=== PATIENT | female | born 1980 ===

== ENCOUNTER 2021-06-14 10:30 | Outpatient (RCR) | payer MEDICARE, MEDICAID, SELFPAY ==
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
--- NOTE | 2021-05-15 15:34 | PC.NURSE ---
case opened in treatment team
[2021-05-16 12:40] VITALS: BMI 20.9
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
--- NOTE | 2021-05-17 12:58 | P.PNPSP_ITS ---
Subjective Subjective Date of Service: 05/17/21 Reason For Visit: PTSD, Depression, Anxiety, Paranoia Interim History: The patient reported anxiety and depression due to her recent loss, and she feels that she is not functioning. She is scared to try a new medication. Mental Status Exam Mental Status Exam Patient Appearance: Well Grooomed Patient Orientation: Person Level of Consciousness: Awake Patient Behavior: Appropriate Mood Description: Depressed Affect Description: Calm Patient Cognition Impaired: No Ability to Follow Directions: Good Speech Pattern: Clear Memory Description: Intact Hallucinations: None Delusions: Not Present Thought Process: Goal Oriented Thought Content: positive for Circumstantial Depressive Symptoms: Increased Anxiety Judgement: Fair Diagnostics Vital Signs (24Hr): Body Mass Index 20.9 Assessment & Plan Assessment & Plan (1) Post-traumatic stress disorder, unspecified: Status: Acute Code(s): F43.10 - Post-traumatic stress disorder, unspecified Assessment and Plan: Adult female with MDD and PTSD, referred to [facility] for exacerbation of depression after the loss of her dog. Plan: 1. We considered Lexapro for depression. 2. Since she has been sleeping poorly and she is paranoid., she agreed to try Doxepin 10 mg po qhs (2) Depression, major, severe recurrence: Status: Acute Code(s): F33.2 - Major depressive disorder, recurrent severe without psychotic features Certification I certify that partial hospital treatment is medically necessary due to the symptoms and problems resulting from the patient's mental illness and the failure to treat the patient at the partial hospital level of care would likely result in the patient requiring inpatient psychiatric care which could not be prevented at a less intensive level of care. Greater than 50% of the session was spent on counseling and/or coordination of care Discharge Plan Discharge Attending provider: Toño Mcmahon Primary Care Provider: Mariela Qureshi Medications: No Action oxcarbazepine 300 mg tablet 1 tab PO BID RF: 0 clonazepam 1 mg tablet 1 mg PO BID RF: 0 alprazolam [Xanax] 0.25 mg tablet 0.25 mg PO BEDTIME RF: 0 famotidine 20 mg tablet 20 mg PO DAILY RF: 0 hydroxyzine HCl 25 mg tablet 25 mg PO BEDTIME PRN (Reason: Insomnia) RF: 0 Referrals: Mariela Qureshi, IVAN [Primary Care Provider] - 1 Week Telehealth Telehealth Location of provider rendering services: practice address Location of patient: address on file Patient Identification confirmed using: Name, : No Telehealth method: video Patient verbally consented to treatment: Yes Patient verbally consented to billing insurance company: Yes Patient informed of any privacy concerns related to visit: No Time spent with patient (mins): 15
--- NOTE | 2021-05-18 15:47 | P.PNPSP_ITS ---
Subjective Subjective Date of Service: 05/18/21 Reason For Visit: PTSD, Depression, Anxiety, Paranoia Subjective Notes: Castillo Warning Guardianship: No Medical Problems Affecting Mental Status: No Interim History: Cintia reports that she met with psychiatrist in this program yesterday, and that she is concerned about the medication he prescribed. Medication education, including efficacy, side effects provided. Discussed other medications such as Lexapro. Also discussed TMS, which patient had expressed interest in. She is requesting referral to [facility] TMS program. Patient reports that she does not wish to start the doxepin today, although this was encouraged by this typewriter assembly and parts inspector. She would like to ?think about it ?, and may want to start Lexapro tomorrow instead. Patient is currently taking other medications at home, does not express any type of concerns regarding them. Continues with dysphoric mood. Denies SI, states that she feels safe at this time. Medication Compliance: Yes (With medications already prescribed by outpatient provider.) Side effects from medications: No Attending Groups: Yes Review of Systems Review of Systems Yes all other systems are reviewed and are negative Mental Status Exam Mental Status Exam Patient Appearance: Well Grooomed and Fatigued Patient Orientation: Person, Place, Time and Situation Level of Consciousness: Awake and Appropriate Patient Behavior: Cooperative, Anxious, Fearful, Fatigued, Distractible and Isolative Mood Description: Appropriate and Anxious Affect Description: Suspicious, Fearful, Anxious, Blunted, Flat and Sad Patient Cognition Impaired: No Ability to Follow Directions: Excellent Speech Pattern: Difficulty Finding Words, Coherent, Soft-Spoken, Delayed and Long Pauses Memory Description: Intact (Appears grossly intact. ) Hallucinations: None (Denies.) Delusions: Paranoid Ideation Thought Process: Distracted and Slowed Thinking Thought Content: positive for [place], positive for Obsessional Thoughts, positive for Perseveration, positive for Slowed Thinking and positive for Disorganized Depressive Symptoms: Increased Anxiety, Insomnia, Diff. Making Decisions, Loss of Int. in Activity, Feelings of Worthlessness, Hopelessness, Isolating- Friends/Family, Feelings of Guilt and Increased Fatigue Judgement: Fair Diagnostics Vital Signs (24Hr): Body Mass Index 20.9 Assessment & Plan Assessment & Plan (1) Depression, major, severe recurrence: Status: Acute Code(s): F33.2 - Major depressive disorder, recurrent severe without psychotic features Assessment and Plan: Patient reports increased anxiety. Reports being fearful regarding starting doxepin. Medication education was provided in depth. Alternative such as Lexapro was also discussed. The patient denies any thoughts of harm to self or others today. Patient requesting referral to [facility] TMS, as she reports she has had multiple adverse reactions to medications in the past. PLAN: No changes to medications at this time. TMS referral discussed with Dr. Rasmussen, patient does not appear to be appropriate candidate at this time. Message left with outpatient psychiatrist, Dr. Donis, at [facility]. He will be back in office on Saturday. Follow-up as per protocol, sooner if needed. Certification I certify that partial hospital treatment is medically necessary due to the symptoms and problems resulting from the patient's mental illness and the failure to treat the patient at the partial hospital level of care would likely result in the patient requiring inpatient psychiatric care which could not be prevented at a less intensive level of care. Greater than 50% of the session was spent on counseling and/or coordination of care Discharge Plan Discharge Attending provider: Toño Mcmahon Primary Care Provider: Mariela Qureshi Medications: New doxepin 10 mg capsule 10 mg PO BEDTIME Qty: 7 RF: 0 No Action oxcarbazepine 300 mg tablet 1 tab PO BID RF: 0 clonazepam 1 mg tablet 1 mg PO BID RF: 0 alprazolam [Xanax] 0.25 mg tablet 0.25 mg PO BEDTIME RF: 0 famotidine 20 mg tablet 20 mg PO DAILY RF: 0 hydroxyzine HCl 25 mg tablet 25 mg PO BEDTIME PRN (Reason: Insomnia) RF: 0 Referrals: Mariela Qureshi, PACKAGING SALES CONSULTANT [Primary Care Provider] - 1 Week Telehealth Telehealth Location of provider rendering services: practice address Location of patient: address on file Patient Identification confirmed using: Name, : Yes Telehealth method: video Patient verbally consented to treatment: Yes Patient verbally consented to billing insurance company: Yes Patient informed of any privacy concerns related to visit: Yes Time spent with patient (mins): 20
--- NOTE | 2021-05-24 12:31 | P.PNPSP_ITS ---
Subjective Subjective Date of Service: 05/24/21 Reason For Visit: PTSD, Depression, Anxiety, Paranoia Interim History: The patient has discussed the possiblity of TMS with her regular prescriber at [facility] and they are on agreement to give a try. Still dysphoric but safe at this moment. she has not started Doxepin yet and she was considering starting Lexapro. Review of Systems Acute medical concerns: No Medical Review of Systems: unchanged Mental Status Exam Mental Status Exam Patient Appearance: Well Grooomed Patient Orientation: Person, Place, Time and Situation Level of Consciousness: Awake Patient Behavior: Appropriate Mood Description: Calm Affect Description: Calm Ability to Follow Directions: Good Speech Pattern: Clear Memory Description: Intact Hallucinations: None Delusions: Not Present Thought Process: Goal Oriented Thought Content: positive for Intact Judgement: Fair Diagnostics Vital Signs (24Hr): Body Mass Index 20.9 Assessment & Plan Assessment & Plan (1) Post-traumatic stress disorder, unspecified: Status: Acute Code(s): F43.10 - Post-traumatic stress disorder, unspecified Assessment and Plan: Adult Caucasina female with MDD and PTSD, Plan: Keep saem treatment. Start Lexapro 5 mg po qam Referral for TMS (2) Depression, major, severe recurrence: Status: Acute Code(s): F33.2 - Major depressive disorder, recurrent severe without psychotic features Certification I certify that partial hospital treatment is medically necessary due to the symptoms and problems resulting from the patient's mental illness and the failure to treat the patient at the partial hospital level of care would likely result in the patient requiring inpatient psychiatric care which could not be prevented at a less intensive level of care. Greater than 50% of the session was spent on counseling and/or coordination of care Discharge Plan Discharge Attending provider: Toño Mcmahon Primary Care Provider: Mariela Qureshi Medications: New doxepin 10 mg capsule 10 mg PO BEDTIME Qty: 7 RF: 0 escitalopram oxalate [Lexapro] 5 mg tablet 5 mg PO DAILY Qty: 14 RF: 0 No Action oxcarbazepine 300 mg tablet 1 tab PO BID RF: 0 clonazepam 1 mg tablet 1 mg PO BID RF: 0 alprazolam [Xanax] 0.25 mg tablet 0.25 mg PO BEDTIME RF: 0 famotidine 20 mg tablet 20 mg PO DAILY RF: 0 hydroxyzine HCl 25 mg tablet 25 mg PO BEDTIME PRN (Reason: Insomnia) RF: 0 Referrals: Mariela Qureshi NP [Primary Care Provider] - 1 Week Telehealth Telehealth Location of provider rendering services: practice address Location of patient: address on file Patient Identification confirmed using: Name, : Yes Telehealth method: video Patient verbally consented to treatment: Yes Patient verbally consented to billing insurance company: Yes Patient informed of any privacy concerns related to visit: No Time spent with patient (mins): 15
--- NOTE | 2021-05-31 12:32 | HO.PHPPROGNO ---
Subjective Subjective Date of Service: 05/31/21 Reason For Visit: PTSD, Depression, Anxiety, Paranoia Interim History: The patient wants to start TMS for depression. She received the package on the andrew. and she is excited and hopeful that it would help fo rher depression. Still slightly dysphoric but safe in the community Review of Systems Acute medical concerns: No Medical Review of Systems: unchanged Mental Status Exam Mental Status Exam Patient Appearance: Well Grooomed Patient Orientation: Person, Place, Time and Situation Level of Consciousness: Awake and Appropriate Patient Behavior: Appropriate Mood Description: Calm and Depressed Affect Description: Constricted Patient Cognition Impaired: No Ability to Follow Directions: Good Speech Pattern: Clear Memory Description: Intact Hallucinations: None Delusions: Not Present Thought Process: Linear Thought Content: positive for Preoccupation Depressive Symptoms: Increased Anxiety and Difficulty Sleeping Judgement: Fair Diagnostics Vital Signs (24Hr): Body Mass Index 20.9 Assessment & Plan Assessment & Plan (1) Post-traumatic stress disorder, unspecified: Status: Acute Code(s): F43.10 - Post-traumatic stress disorder, unspecified (2) Depression, major, severe recurrence: Status: Acute Code(s): F33.2 - Major depressive disorder, recurrent severe without psychotic features Assessment and Plan: Adult female with MDD and PTSD, with a long history of depression, referred for exacerbation of dyphoria. Plan: Referred to TMS. Keep same treatment Reason for contiued partial hosp. stay Substantial Risk for: inability to function, rapid decompensation and med/psych decompensation Certification I certify that partial hospital treatment is medically necessary due to the symptoms and problems resulting from the patient's mental illness and the failure to treat the patient at the partial hospital level of care would likely result in the patient requiring inpatient psychiatric care which could not be prevented at a less intensive level of care. Greater than 50% of the session was spent on counseling and/or coordination of care Discharge Plan Discharge Attending provider: Toño Mcmahon Primary Care Provider: Mariela Qureshi Medications: New doxepin 10 mg capsule 10 mg PO BEDTIME Qty: 7 RF: 0 escitalopram oxalate [Lexapro] 5 mg tablet 5 mg PO DAILY Qty: 14 RF: 0 No Action oxcarbazepine 300 mg tablet 1 tab PO BID RF: 0 clonazepam 1 mg tablet 1 mg PO BID RF: 0 alprazolam [Xanax] 0.25 mg tablet 0.25 mg PO BEDTIME RF: 0 famotidine 20 mg tablet 20 mg PO DAILY RF: 0 hydroxyzine HCl 25 mg tablet 25 mg PO BEDTIME PRN (Reason: Insomnia) RF: 0 Referrals: Mariela Qureshi NP [Primary Care Provider] - 1 Week Telehealth Telehealth Location of provider rendering services: practice address Location of patient: address on file Patient Identification confirmed using: Name, : Yes Telehealth method: video Patient verbally consented to treatment: Yes Patient verbally consented to billing insurance company: Yes Patient informed of any privacy concerns related to visit: No Time spent with patient (mins): 15
--- NOTE | 2021-05-31 15:20 | PC.NURSE ---
Haider for pt and asked her to pls call re: schedule and how the program is going.
--- NOTE | 2021-06-07 12:34 | HO.PHPPROGNO ---
Subjective Subjective Date of Service: 06/07/21 Reason For Visit: PTSD, Depression, Anxiety, Paranoia Interim History: The patietn has finished the TMS paperwork yesterday. Her mood is sitll dysphoric but safe in the community. She has not started medication. Review of Systems Acute medical concerns: No Medical Review of Systems: unchanged Mental Status Exam Mental Status Exam Patient Appearance: Well Grooomed Patient Orientation: Person, Place, Time and Situation Level of Consciousness: Awake Patient Behavior: Appropriate Mood Description: Withdrawn Affect Description: Constricted Patient Cognition Impaired: No Ability to Follow Directions: Good Speech Pattern: Soft-Spoken Memory Description: Intact Hallucinations: None Delusions: Not Present Thought Process: Goal Oriented and Linear Thought Content: positive for Circumstantial Judgement: Fair Diagnostics Vital Signs (24Hr): Body Mass Index 20.9 Assessment & Plan Assessment & Plan (1) Depression, major, severe recurrence: Status: Acute Code(s): F33.2 - Major depressive disorder, recurrent severe without psychotic features (2) Post-traumatic stress disorder, unspecified: Status: Acute Code(s): F43.10 - Post-traumatic stress disorder, unspecified Assessment and Plan: The patient is a 40 year old female with mood disorder, very depressed but referred to TMS. Plan: Keep same treatmetn. Informed Consent: understands Reason for contiued partial hosp. stay Substantial Risk for: inability to function, rapid decompensation and med/psych decompensation Certification I certify that partial hospital treatment is medically necessary due to the symptoms and problems resulting from the patient's mental illness and the failure to treat the patient at the partial hospital level of care would likely result in the patient requiring inpatient psychiatric care which could not be prevented at a less intensive level of care. Greater than 50% of the session was spent on counseling and/or coordination of care Discharge Plan Discharge Attending provider: Toño Mcmahon Primary Care Provider: Mariela Qureshi Medications: New doxepin 10 mg capsule 10 mg PO BEDTIME Qty: 7 RF: 0 escitalopram oxalate [Lexapro] 5 mg tablet 5 mg PO DAILY Qty: 14 RF: 0 No Action oxcarbazepine 300 mg tablet 1 tab PO BID RF: 0 clonazepam 1 mg tablet 1 mg PO BID RF: 0 alprazolam [Xanax] 0.25 mg tablet 0.25 mg PO BEDTIME RF: 0 famotidine 20 mg tablet 20 mg PO DAILY RF: 0 hydroxyzine HCl 25 mg tablet 25 mg PO BEDTIME PRN (Reason: Insomnia) RF: 0 Referrals: Mariela Qureshi NP [Primary Care Provider] - 1 Week Telehealth Telehealth Location of provider rendering services: practice address Location of patient: address on file Patient Identification confirmed using: Name, : Yes Telehealth method: video Patient verbally consented to treatment: Yes Patient verbally consented to billing insurance company: Yes Patient informed of any privacy concerns related to visit: No Time spent with patient (mins): 15
--- NOTE | 2021-06-09 12:07 | PC.NURSE ---
Reviewed patient medications with patient. Patient has not started Lexapro or Doxepin as she is afraid she will have an adverse effect to the medication as she stated she has had bad reactions in the past to medications and is afraid to take new medications. Patient stated Dr Mcmahon is aware. Patient reports looking forward to starting TMS in hopes it will help her with her symptoms of depression. Plan is for her parents to drive her to the sessions. Stated she suffers from agoraphobia and has difficulty leaving her home. Let patient know that Ceci from TMS will be calling her at 1500 to set up an appointment for TMS which patient was thankful for.
--- NOTE | 2021-06-13 12:52 | P.PNPSP_ITS ---
Subjective Subjective Date of Service: 06/13/21 Reason For Visit: PTSD, Depression, Anxiety, Paranoia Interim History: The patient reports less dysphoria, she states that she is doing OK . She feels grateful for [facility] and she feels that she had learn in the program. She has already contacted with the TMS team. Review of Systems Acute medical concerns: No Medical Review of Systems: unchanged Mental Status Exam Mental Status Exam Patient Appearance: Well Grooomed Patient Orientation: Person, Place, Time and Situation Level of Consciousness: Awake Patient Behavior: Appropriate Mood Description: Calm Affect Description: Calm Patient Cognition Impaired: No Ability to Follow Directions: Good Speech Pattern: Clear Memory Description: Intact Hallucinations: None Delusions: Not Present Thought Process: Distracted Thought Content: positive for Circumstantial Judgement: Fair Diagnostics Vital Signs (24Hr): Body Mass Index 20.9 Assessment & Plan Assessment & Plan (1) Depression, major, severe recurrence: Status: Acute Code(s): F33.2 - Major depressive disorder, recurrent severe without psychotic features (2) Post-traumatic stress disorder, unspecified: Status: Acute Code(s): F43.10 - Post-traumatic stress disorder, unspecified Assessment and Plan: The emir is an adult female with depression and PTSD. She was referred by her regular prescriber due to exacerbaiton of depression. Plan: D/C Referred to TMS Reason for contiued partial hosp. stay Substantial Risk for: stable for discharge Certification I certify that partial hospital treatment is medically necessary due to the symptoms and problems resulting from the patient's mental illness and the failure to treat the patient at the partial hospital level of care would likely result in the patient requiring inpatient psychiatric care which could not be prevented at a less intensive level of care. Greater than 50% of the session was spent on counseling and/or coordination of care Discharge Plan Discharge Attending provider: Toño Mcmahon Primary Care Provider: Mariela Qureshi Medications: New doxepin 10 mg capsule 10 mg PO BEDTIME Qty: 7 RF: 0 escitalopram oxalate [Lexapro] 5 mg tablet 5 mg PO DAILY Qty: 14 RF: 0 No Action oxcarbazepine 300 mg tablet 1 tab PO BID RF: 0 clonazepam 1 mg tablet 1 mg PO BID RF: 0 alprazolam [Xanax] 0.25 mg tablet 0.25 mg PO BEDTIME RF: 0 hydroxyzine HCl 25 mg tablet 25 mg PO BEDTIME PRN (Reason: Insomnia) RF: 0 omeprazole 20 mg Capsule,Delayed Release(Dr/Ec) 20 mg PO DAILY RF: 0 Referrals: Mariela Qureshi NP [Primary Care Provider] - 1 Week Stand Alone Forms: Patient Portal Discharge page Telehealth Telehealth Location of provider rendering services: practice address Location of patient: address on file Patient Identification confirmed using: Name, : Yes Telehealth method: video Patient verbally consented to treatment: Yes Patient verbally consented to billing insurance company: Yes Patient informed of any privacy concerns related to visit: No Time spent with patient (mins): 15
--- NOTE | 2021-06-14 10:16 | PC.NURSE ---
Discharge from [facility] on 06/14/2021. Patient states she is ready for discharge, denies suicidal ideation and states she is looking forward to upcoming TMS treatments. 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 Reviewed discharge medications. Patient verbalizes understanding. Patient has not started Doxepin or Lexapro as she is concerned about adverse side effects related to her history of reactions to many medications. Patient denies SI and HI. Patient denies VH and AH. Patient reports understanding of discharge plan,
--- NOTE | 2021-06-14 17:05 | PC.NURSE ---
I called and LM for pt's therapist, Cristina Hagen at [facility]. I let her know that pt is struggling to get her needs met with daily tasks, and that pt discharged today from [facility] successfully.
== END 2021-06-15 07:09 | disposition home or self-care (01) ==
LOC: HO.PHPA 10:30
PROVIDERS: PCP Nurse Practitioner Adult Health; Visit Provider Psychiatry & Neurology Psychiatry
DX: F33.2 Major depressive disorder, recurrent severe without psychotic features (principal); F43.10 Post-traumatic stress disorder, unspecified
CPT/HCPCS: 90791; 90853